=== PATIENT | female | born 1990 ===

== ENCOUNTER 2020-09-04 07:06 | Inpatient (IN) | payer OTHER ==
[~2020-09-04] VITALS: Ht 167.6 cm; Wt 84.4 kg
[2020-09-04] MEDS ORDERED: IRON325 MG PO (07:37)
[2020-09-04] MEDS ORDERED: PRENATAL TABLE1 EAC1 PO (07:37)
== END 2020-09-06 13:48 | disposition home or self-care (01) | DRG 807 ==
LOC: LDR 07:06 → OB/GYN 14:37
PROVIDERS: ADMIT Obstetrics & Gynecology; ATTEND Obstetrics & Gynecology
PROC: 10E0XZZ Delivery of Products of Conception, External Approach (ICD-10-PCS; principal; 2020-09-04)
PROC: 4A1HXFZ Monitoring of Products of Conception, Cardiac Rhythm, External Approach (ICD-10-PCS; 2020-09-04)
DX: O42.02 Full-term premature rupture of membranes, onset of labor within 24 hours of rupture (principal); O99.824 Streptococcus B carrier state complicating childbirth; Z37.0 Single live birth; Z3A.38 38 weeks gestation of pregnancy; Z20.822 Contact with and (suspected) exposure to COVID-19